=== PATIENT | female | born 1970 | race African-American/Black ===

== ENCOUNTER 2018-10-16 13:45 | Emergency (ER) | payer OTHER ==
[~2018-10-16] VITALS: Ht 172.7 cm; Wt 97.5 kg
[2018-10-16] MEDS ORDERED: COZAAR 25 MG TA25 M1 PO (14:51)
[2018-10-16 16:38] VITALS: BP 142/85
== END 2018-10-16 16:38 | disposition home or self-care (01) ==
LOC: ER 13:45
DX: I10 Essential (primary) hypertension (principal); R51 Headache; F17.210 Nicotine dependence, cigarettes, uncomplicated